=== PATIENT | female | born 1975 | race Caucasian/White ===

== ENCOUNTER 2017-04-08 12:13 | Emergency (ER) | payer OTHER ==
[~2017-04-08] VITALS: Ht 167.6 cm; Wt 120.0 kg
[~2017-04-08 12:13] MED LIST: ACEASPCAF PO; ACET500 PO; ALBU90OI INH; ALBU90OI6; ALBU90OI61 INH; Acetaminophen325 M1 PO; Amitriptyline H10 MG PO; Amoxicillin875 MG PO; Aspirin EC81 MG PO; Ativan1 MG PO; BUPR150ER PO; CEPH500 PO; CIPR500 PO; CRUTCH4 USE; CYCL10 PO; Crutch1 EACH MISC; DOCU100 PO; DOXY100 PO; EQUATE MIGRAINE; Excedrin Extra1 EACH PO; FLUO10 PO; FLUT220OIA INH; Flonase 0.05% N16 GM; GABA100 PO; HYDACE5; HYDACE5 PO; IBUP200 PO; IBUP400 PO; IBUP600 PO; IBUP800 PO; LIDO5TP TOP; LORA1 PO; MULVITMINE PO; NAPR220 PO; NAPR500 PO; Naprosyn500 MG PO; Norco 5-325 Ta1 EACH PO; OXYACE5T PO; PENVK500 PO; PERM5TC TOP; PRED20 PO; PROM25 PO; PSEU120ER PO; Prednisone20 MG PO; RANI150 PO; RXOXYACE PO; RXPROM25 PO; RXTRAM50 PO; SPACE CHAMBER1 EACH MC; SULI150 PO; TRAACE PO; TRAM50 PO; TRAZ50 PO; ULTRAM PO; Ultram50 MG PO; Verotin-Gr Cap1 EACH PO; Vistaril50 MG PO; Vitamin D2000 UNIT PO; Zithromax250 MG PO; Zofran4 MG PO; [UNRECOGNIZED DRUG - OTHER]; [UNRECOGNIZED DRUG - OTHER] PO
[2017-04-08 12:51] LABS: BASOPHILS ABSOLUTE AUTO 0.09 K/mm3 (0.00-0.23); BASOPHILS PERCENT AUTO 1 % (0-2); EOSINOPHILS ABSOLUTE AUTO 0.58 K/mm3 (0.00-0.68); EOSINOPHILS PERCENT AUTO 6 % (0-6); Hematocrit 41.1 % (33.0-51.0); Hemoglobin 13.2 g/dL (11.5-16.0); IMMATURE GRAN ABSOLUTE AUTO 0.02 K/mm3 (0.00-0.10); IMMATURE GRAN PERCENT AUTO 0 % (0-1); LYMPHOCYTES ABSOLUTE AUTO 3.76 K/mm3 (0.84-5.20); LYMPHOCYTES PERCENT AUTO 35 % (21-46); MONOCYTES PERCENT AUTO 5 % (4-13); Mean Corpuscular HGB 28.8 pg (26.0-34.0); Mean Corpuscular HGB Conc 32.1 g/dL (31.5-36.5); Mean Corpuscular Volume 90 fL (80-100); Mean Platelet Volume 9.1 fL (9.1-12.4); NEUTROPHILS ABSOLUTE AUTO 5.69 K/mm3 (1.96-9.15); NEUTROPHILS PERCENT AUTO 54 % (41-73); Platelet Count 349 K/mm3 (150-400); RDW Coefficient Variation 12.1 % (11.7-14.2); RDW Standard Deviation 39.9 fL (35.1-46.3); Red Blood Cell Count 4.58 M/mm3 (3.80-5.20); White Blood Cell Count 10.64 K/mm3 (4.00-11.30)
[2017-04-08 13:08] LABS: Alanine Aminotransfer (ALT/SGP 21 U/L (12-78); Albumin, Blood 3.4 g/dL (3.4-5.0); Albumin/Globulin Ratio 0.7 (0.8-1.8); Alk Phos 97 U/L (50-136); Anion Gap 8 mmol/L (6-16); Aspartate Aminotrans (AST/SGOT 16 U/L (12-37); Bilirubin, Total 0.3 mg/dL (0.1-1.0); Blood Urea Nitrogen 18 mg/dL (8-24); Bun/Creatinine Ratio 18.5 (12.0-20.0); CO2, Blood 27 mmol/L (21-32); Chloride, Blood 105 mmol/L (98-108); Creatinine, Blood 0.97 mg/dL (0.40-1.00); Globulin, Blood 4.7 g/dL (2.2-4.0); Glomerular Filtration Rate >60 (60-); Glucose, Blood 83 mg/dL (70-99); Potassium, Blood 3.8 mmol/L (3.5-5.5); Sodium, Blood 140 mmol/L (136-145); Total Protein, Blood 8.1 g/dL (6.4-8.2)
[2017-04-08] MEDS ORDERED: ACET250 PO (15:26)
[2017-04-08] MEDS ORDERED: Ultram50 MG PO (15:45)
== END 2017-04-08 15:58 | disposition home or self-care (01) ==
LOC: ER 12:13
PROVIDERS: Emergency Medicine
DX: G93.2 Benign intracranial hypertension (principal); J45.909 Unspecified asthma, uncomplicated; Z90.710 Acquired absence of both cervix and uterus; Z90.49 Acquired absence of other specified parts of digestive tract
CPT/HCPCS: 36415; 70450; 80053; 85025; 96374; 99284; J1940

== ENCOUNTER 2017-09-03 10:42 | Emergency (ER) | payer OTHER ==
[~2017-09-03] VITALS: Ht 167.6 cm; Wt 108.9 kg
[~2017-09-03 10:42] MED LIST changes: +ACET250 PO
[2017-09-03] MEDS ORDERED: MECL12.5 PO (11:27)
[2017-09-03] MEDS ORDERED: Esgic Tablet1 EACH PO (11:27)
== END 2017-09-03 11:31 | disposition home or self-care (01) ==
LOC: ER 10:42
DX: R51 Headache (principal); J45.909 Unspecified asthma, uncomplicated; Z88.8 Allergy status to other drugs, medicaments and biological substances; Z91.012 Allergy to eggs; Z91.018 Allergy to other foods; Z79.899 Other long term (current) drug therapy
CPT/HCPCS: 96372; 99283; J1100; J1200; J1885

== ENCOUNTER 2017-09-20 09:49 | Emergency (ER) | payer OTHER ==
[~2017-09-20] VITALS: Ht 167.6 cm; Wt 108.9 kg
[~2017-09-20 09:49] MED LIST changes: +Esgic Tablet1 EACH PO; +MECL12.5 PO
[2017-09-20 10:19] LABS: Source, Urine Clean Catch
[2017-09-20 10:35] LABS: Bilirubin, Urine Neg (Neg); Blood, Urine 1+ (Neg); Glucose Qualitative, Urine Neg (Neg); Ketones, Urine Neg (Neg); Leukocyte Esterase, Urine 3+ (Neg); Nitrite, Urine Neg (Neg); Protein, Urine Neg (Neg); Specific Gravity, Urine 1.015 (1.003-1.022); Urobilinogen, Urine NORM (Normal)
[2017-09-20 10:41] LABS: Appearance, Urine Clear (Clear); Color, Urine Yellow (P-Yellow)
[2017-09-20 10:43] LABS: Bacteria Few /hpf; Squamous Epithelial Cells Mod /hpf (Few)
[2017-09-20 10:53] LABS: Bun/Creatinine Ratio 12.5 (12.0-20.0); Calcium, Blood 9.1 mg/dL (8.5-10.1); Creatinine, Blood 1.12 mg/dL (0.40-1.00); Potassium, Blood 4.1 mmol/L (3.5-5.5)
== END 2017-09-20 12:03 | disposition home or self-care (01) ==
LOC: ER 09:49
PROVIDERS: Emergency Medicine
DX: E86.0 Dehydration (principal); Z88.8 Allergy status to other drugs, medicaments and biological substances; Z91.012 Allergy to eggs; Z91.018 Allergy to other foods; Z79.899 Other long term (current) drug therapy; Z87.891 Personal history of nicotine dependence
CPT/HCPCS: 36415; 80048; 81001; 87086; 96360; 99284-25; J2405; J7030

== ENCOUNTER 2018-03-29 08:13 | Emergency (ER) | payer OTHER ==
[~2018-03-29] VITALS: Ht 167.6 cm; Wt 122.5 kg
[2018-03-29] MEDS ORDERED: Flonase 0.05% N16 GM (09:32)
[2018-03-29] MEDS ORDERED: Cheratussin AC118 ML PO (09:32)
[2018-03-29] MEDS ORDERED: Sudogest30 MG PO (09:32)
[2018-03-29] MEDS ORDERED: BENZ100A PO (09:32)
== END 2018-03-29 10:10 | disposition home or self-care (01) ==
LOC: ER 08:13
DX: J32.9 Chronic sinusitis, unspecified (principal); J45.909 Unspecified asthma, uncomplicated; Z88.8 Allergy status to other drugs, medicaments and biological substances; Z79.899 Other long term (current) drug therapy
CPT/HCPCS: 96374; 99282-25; J1100

== ENCOUNTER 2018-04-12 17:59 | Emergency (ER) | payer OTHER ==
[~2018-04-12] VITALS: Ht 167.6 cm; Wt 122.5 kg
[~2018-04-12 17:59] MED LIST changes: +BENZ100A PO; +Cheratussin AC118 ML PO; +Sudogest30 MG PO
[2018-04-12] MEDS ORDERED: Sudogest60 MG PO (20:00)
[2018-04-12] MEDS ORDERED: Cheratussin AC118 ML PO (20:00)
[2018-04-12] MEDS ORDERED: BENZ100A PO (20:00)
== END 2018-04-12 20:09 | disposition home or self-care (01) ==
LOC: ER 17:59
DX: J06.9 Acute upper respiratory infection, unspecified (principal); Z88.8 Allergy status to other drugs, medicaments and biological substances; Z91.012 Allergy to eggs; Z91.018 Allergy to other foods; Z79.899 Other long term (current) drug therapy; Z87.891 Personal history of nicotine dependence
CPT/HCPCS: 71046; 99283-25; J1100

== ENCOUNTER 2018-06-04 14:16 | Emergency (ER) | payer OTHER ==
[~2018-06-04] VITALS: Ht 167.6 cm; Wt 122.5 kg
[~2018-06-04 14:16] MED LIST changes: +Sudogest60 MG PO
[2018-06-04 15:20] LABS: Influenza A Negative (NEGATIVE); Influenza B Negative (NEGATIVE)
[2018-06-04] MEDS ORDERED: Zithromax250 MG PO (16:02)
[2018-06-04] MEDS ORDERED: Cheratussin AC118 ML PO (16:02)
== END 2018-06-04 16:20 | disposition home or self-care (01) ==
LOC: ER 14:16
PROVIDERS: Physician Assistant
DX: R05 Cough (principal); J45.909 Unspecified asthma, uncomplicated; Z88.8 Allergy status to other drugs, medicaments and biological substances; Z88.6 Allergy status to analgesic agent; Z91.012 Allergy to eggs; Z79.899 Other long term (current) drug therapy
CPT/HCPCS: 71046; 87804; 99283-25; J1100

== ENCOUNTER 2018-10-09 06:37 | Day surgery (SDC) | payer OTHER ==
[~2018-10-09] VITALS: Ht 167.6 cm; Wt 131.7 kg
[~2018-10-09 06:37] MED LIST changes: +Flovent 220 Ora12 GM INH; +GABA300 PO; +HYDHCL25 PO; +Lyrica150 MG PO; +Naltrexone HCl50 MG PO; +PREPLUS CA-FE1 EACH PO; +Prilosec Otc20 MG PO; +Prozac40 MG PO; +VOL-PLUS TABLE1 EAC1 PO; +Xalatan2.5 ML BOTHEYES
--- NOTE | 2018-10-09 07:15 | NUR ---
10/09/18 0715 Merari Dawn 1 IV ATTEMPT RIGHT HAND BY [email or web address], 1 IV ATTEMPT RIGHT FA BY [email or web address]. 1 IV ATTEMPT RIGHT HAND BY ORSC.AMALIA. PT TOW.
== END 2018-10-09 08:25 | disposition home or self-care (01) ==
LOC: ORSCSDS 06:37
PROVIDERS: Orthopaedic Surgery
PROC: 01N50ZZ Release Median Nerve, Open Approach (ICD-10-PCS; principal; 2018-10-09 07:30)
DX: G56.02 Carpal tunnel syndrome, left upper limb (principal); M79.7 Fibromyalgia; J45.909 Unspecified asthma, uncomplicated; Z79.899 Other long term (current) drug therapy; Z87.891 Personal history of nicotine dependence; E66.9 Obesity, unspecified; Z68.42 Body mass index [BMI] 45.0-49.9, adult
CPT/HCPCS: J2250; J7120

== ENCOUNTER 2019-01-06 11:35 | Emergency (ER) | payer OTHER ==
[~2019-01-06] VITALS: Ht 167.6 cm; Wt 136.1 kg
[2019-01-06 13:24] LABS: Source, Urine Clean Catch
[2019-01-06 13:26] LABS: Alanine Aminotransfer (ALT/SGP 25 U/L (12-78); Albumin, Blood 3.7 g/dL (3.4-5.0); Albumin/Globulin Ratio 0.9 (0.8-1.8); Alk Phos 95 U/L (50-136); Anion Gap 5 mmol/L (6-16); Aspartate Aminotrans (AST/SGOT 18 U/L (12-37); Bilirubin, Total 0.5 mg/dL (0.1-1.0); Blood Urea Nitrogen 17 mg/dL (8-24); Bun/Creatinine Ratio 17.7 (12.0-20.0); CO2, Blood 25 mmol/L (21-32); Chloride, Blood 106 mmol/L (98-108); Creatinine, Blood 0.96 mg/dL (0.40-1.00); Globulin, Blood 4.3 g/dL (2.2-4.0); Glomerular Filtration Rate >60 (60-); Glucose, Blood 92 mg/dL (70-99); Potassium, Blood 4.2 mmol/L (3.5-5.5); Sodium, Blood 136 mmol/L (136-145)
[2019-01-06 13:27] LABS: BASOPHILS ABSOLUTE AUTO 0.05 K/mm3 (0.00-0.23); BASOPHILS PERCENT AUTO 1 % (0-2); EOSINOPHILS ABSOLUTE AUTO 0.21 K/mm3 (0.00-0.68); EOSINOPHILS PERCENT AUTO 2 % (0-6); Hematocrit 45.4 % (33.0-51.0); Hemoglobin 14.7 g/dL (11.5-16.0); IMMATURE GRAN ABSOLUTE AUTO 0.05 K/mm3 (0.00-0.10); IMMATURE GRAN PERCENT AUTO 1 % (0-1); LYMPHOCYTES ABSOLUTE AUTO 2.27 K/mm3 (0.84-5.20); LYMPHOCYTES PERCENT AUTO 21 % (21-46); MONOCYTES ABSOLUTE AUTO 0.44 K/mm3 (0.16-1.47); MONOCYTES PERCENT AUTO 4 % (4-13); Mean Corpuscular HGB 28.7 pg (26.0-34.0); Mean Corpuscular HGB Conc 32.4 g/dL (31.5-36.5); Mean Corpuscular Volume 89 fL (80-100); NEUTROPHILS ABSOLUTE AUTO 7.85 K/mm3 (1.96-9.15); NEUTROPHILS PERCENT AUTO 72 % (41-73); RDW Coefficient Variation 12.7 % (11.7-14.2); RDW Standard Deviation 41.4 fL (35.1-46.3); Red Blood Cell Count 5.12 M/mm3 (3.80-5.20); White Blood Cell Count 10.87 K/mm3 (4.00-11.30)
[2019-01-06 13:29] LABS: Mean Platelet Volume 9.8 fL (9.1-12.4); Platelet Count 345 K/mm3 (150-400)
[2019-01-06 14:07] LABS: Bilirubin, Urine Neg (Neg); Blood, Urine 1+ (Neg); Color, Urine Yellow (P-Yellow); Glucose Qualitative, Urine Neg (Neg); Ketones, Urine Neg (Neg); Leukocyte Esterase, Urine 2+ (Neg); Nitrite, Urine Neg (Neg); Protein, Urine 1+ (Neg); Specific Gravity, Urine 1.015 (1.003-1.022); Urobilinogen, Urine NORM (Normal)
[2019-01-06 14:19] LABS: Appearance, Urine Hazy (Clear)
[2019-01-06 14:23] LABS: Bacteria Mod /hpf; Squamous Epithelial Cells Mod /hpf (Few)
[2019-01-06] MEDS ORDERED: CEPH500 PO (14:48)
[2019-01-06] MEDS ORDERED: KETO10 PO (14:48)
[2019-01-06] MEDS ORDERED: Norco 5-325 Ta1 EACH PO (14:48)
== END 2019-01-06 15:19 | disposition home or self-care (01) ==
LOC: ER 11:35
PROVIDERS: Physician Assistant
DX: G43.909 Migraine, unspecified, not intractable, without status migrainosus (principal); N39.0 Urinary tract infection, site not specified; Z88.8 Allergy status to other drugs, medicaments and biological substances; Z91.012 Allergy to eggs; Z79.899 Other long term (current) drug therapy; Z87.891 Personal history of nicotine dependence
CPT/HCPCS: 36415; 70450; 72125; 80053; 81001; 85025; 87086; 96372; 99284-25; J1885

== ENCOUNTER 2019-03-28 20:19 | Emergency (ER) | payer OTHER ==
[~2019-03-28] VITALS: Ht 167.6 cm; Wt 136.1 kg
[~2019-03-28 20:19] MED LIST changes: +KETO10 PO
[2019-03-28] MEDS ORDERED: KETO10 PO (21:26)
== END 2019-03-28 21:40 | disposition home or self-care (01) ==
LOC: ER 20:19
DX: S89.82XA Other specified injuries of left lower leg, initial encounter (principal); Z79.899 Other long term (current) drug therapy; W18.30XA Fall on same level, unspecified, initial encounter
CPT/HCPCS: 73564; 99283-25; A9270-GY

== ENCOUNTER 2019-04-08 12:05 | Emergency (ER) | payer OTHER ==
[~2019-04-08] VITALS: Ht 167.6 cm; Wt 136.1 kg
[2019-04-08] MEDS ORDERED: Norco 5-325 Ta1 EACH PO (15:26)
== END 2019-04-08 15:44 | disposition home or self-care (01) ==
LOC: ER 12:05
DX: S83.92XA Sprain of unspecified site of left knee, initial encounter (principal); W18.30XA Fall on same level, unspecified, initial encounter; Z88.8 Allergy status to other drugs, medicaments and biological substances; Z91.018 Allergy to other foods; Z79.899 Other long term (current) drug therapy; Z91.012 Allergy to eggs; J45.909 Unspecified asthma, uncomplicated; Z87.891 Personal history of nicotine dependence
CPT/HCPCS: 99283

== ENCOUNTER → 2020-01-07 | Outpatient (CLI) | payer OTHER | LOC: PLD 07:40 → LAB SHORT 07:40 | DX: A63.0 Anogenital (venereal) warts (principal) | CPT/HCPCS: 88305 ==

== ENCOUNTER 2021-07-31 13:26 | Emergency (ER) | payer OTHER ==
[~2021-07-31] VITALS: Ht 167.6 cm; Wt 158.8 kg
[2021-07-31] MEDS ORDERED: NAPR500 PO (15:17)
== END 2021-07-31 15:23 | disposition home or self-care (01) ==
LOC: ER 13:26
DX: S83.92XA Sprain of unspecified site of left knee, initial encounter (principal); W18.30XA Fall on same level, unspecified, initial encounter; J45.909 Unspecified asthma, uncomplicated; Z91.012 Allergy to eggs; Z88.8 Allergy status to other drugs, medicaments and biological substances; Z91.018 Allergy to other foods; Z79.899 Other long term (current) drug therapy; Z87.891 Personal history of nicotine dependence
CPT/HCPCS: 73564; 96372; 99283-25; J1885

== ENCOUNTER 2021-09-06 10:45 | Emergency (ER) | payer OTHER ==
[~2021-09-06] VITALS: Ht 167.6 cm; Wt 158.8 kg
[2021-09-06] MEDS ORDERED: Norco 5-325 Ta1 EACH PO (13:20)
== END 2021-09-06 13:06 | disposition home or self-care (01) ==
LOC: ER 10:45
DX: K08.89 Other specified disorders of teeth and supporting structures (principal); Z88.8 Allergy status to other drugs, medicaments and biological substances; Z91.018 Allergy to other foods; Z79.899 Other long term (current) drug therapy; Z87.891 Personal history of nicotine dependence
CPT/HCPCS: A9270

== ENCOUNTER 2022-07-23 06:37 | Emergency (ER) | payer OTHER ==
[~2022-07-23] VITALS: Ht 162.6 cm; Wt 154.2 kg
[~2022-07-23 06:37] MED LIST changes: +Voltaren100 GM TOP
[2022-07-23 07:19] LABS: BASOPHILS ABSOLUTE AUTO 0.09 K/mm3 (0.00-0.23); BASOPHILS PERCENT AUTO 1 % (0-2); EOSINOPHILS ABSOLUTE AUTO 1.21 K/mm3 (0.00-0.68); EOSINOPHILS PERCENT AUTO 7 % (0-6); Hematocrit 41.8 % (33.0-51.0); Hemoglobin 13.2 g/dL (11.5-16.0); IMMATURE GRAN ABSOLUTE AUTO 0.06 K/mm3 (0.00-0.10); IMMATURE GRAN PERCENT AUTO 0 % (0-1); LYMPHOCYTES ABSOLUTE AUTO 2.56 K/mm3 (0.84-5.20); LYMPHOCYTES PERCENT AUTO 15 % (21-46); MONOCYTES PERCENT AUTO 4 % (4-13); Mean Corpuscular HGB 28.6 pg (26.0-34.0); Mean Corpuscular HGB Conc 31.6 g/dL (31.5-36.5); Mean Corpuscular Volume 91 fL (80-100); NEUTROPHILS ABSOLUTE AUTO 12.76 K/mm3 (1.96-9.15); NEUTROPHILS PERCENT AUTO 74 % (41-73); Platelet Count 435 K/mm3 (150-400); RDW Standard Deviation 46.2 fL (35.1-46.3); Red Blood Cell Count 4.61 M/mm3 (3.80-5.20); White Blood Cell Count 17.28 K/mm3 (4.00-11.30)
[2022-07-23 07:29] LABS: Albumin, Blood 3.1 g/dL (3.4-5.0); Albumin/Globulin Ratio 0.7 (0.8-1.8); Bilirubin, Total 0.6 mg/dL (0.1-1.0); Calcium, Blood 10.4 mg/dL (8.5-10.1); Creatinine, Blood 1.23 mg/dL (0.40-1.00); Globulin, Blood 4.5 g/dL (2.2-4.0); Total Protein, Blood 7.6 g/dL (6.4-8.2)
[2022-07-23 07:43] LABS: Source, Urine Voided
[2022-07-23 07:56] LABS: Appearance, Urine Bloody (Clear); Bilirubin, Urine Neg (Neg); Blood, Urine 5+ (Neg); Color, Urine Red (P-Yellow); Glucose Qualitative, Urine Neg (Neg); Ketones, Urine 2+ (Neg); Leukocyte Esterase, Urine Neg (Neg); Nitrite, Urine Neg (Neg); Protein, Urine 3+ (Neg); Specific Gravity, Urine 1.015 (1.003-1.022); Urobilinogen, Urine 1+ (Normal)
[2022-07-23 08:03] LABS: Red Blood Cells, Urine TNTC /hpf (0-2)
[2022-07-23 08:05] LABS: Bacteria Mod /hpf; Squamous Epithelial Cells Few /hpf (Few)
[2022-07-23 08:10] LABS: White Blood Cells, Urine 0-2 /hpf (0-5)
[2022-07-23 08:11] LABS: Calcium Oxalate Crystals Rare /hpf
[2022-07-23 08:12] LABS: Transitional Epithelial Cells Rare /hpf (0-Rare)
[2022-07-23 12:00] VITALS: BP 150/102
== END 2022-07-23 13:12 | disposition short-term general hospital (02) ==
LOC: ER 06:37
PROVIDERS: Emergency Medicine
DX: N13.2 Hydronephrosis with renal and ureteral calculous obstruction (principal); Z88.8 Allergy status to other drugs, medicaments and biological substances; Z91.018 Allergy to other foods; Z91.012 Allergy to eggs; Z87.891 Personal history of nicotine dependence
CPT/HCPCS: 74177; 80053; 81001; 83690; 85025; 87086; 93005; 93010; 96361; 96374-59; 96375; 96376; 99285-25; J0696; J1170; J1885; J7030; Q9967

== ENCOUNTER 2022-08-01 11:45 | Emergency (ER) | payer OTHER ==
[~2022-08-01] VITALS: Ht 167.6 cm; Wt 127.0 kg
[2022-08-01 12:53] LABS: Source, Urine Clean Catch
[2022-08-01 12:56] LABS: Appearance, Urine Cloudy (Clear); Bilirubin, Urine Neg (Neg); Blood, Urine 5+ (Neg); Color, Urine Amber (P-Yellow); Glucose Qualitative, Urine Neg (Neg); Ketones, Urine Neg (Neg); Leukocyte Esterase, Urine 2+ (Neg); Nitrite, Urine Neg (Neg); Protein, Urine 3+ (Neg); Urobilinogen, Urine NORM (Normal)
[2022-08-01 12:57] LABS: BASOPHILS ABSOLUTE AUTO 0.06 K/mm3 (0.00-0.23); BASOPHILS PERCENT AUTO 1 % (0-2); EOSINOPHILS ABSOLUTE AUTO 0.74 K/mm3 (0.00-0.68); EOSINOPHILS PERCENT AUTO 6 % (0-6); Hemoglobin 13.5 g/dL (11.5-16.0); IMMATURE GRAN ABSOLUTE AUTO 0.05 K/mm3 (0.00-0.10); IMMATURE GRAN PERCENT AUTO 0 % (0-1); LYMPHOCYTES ABSOLUTE AUTO 2.03 K/mm3 (0.84-5.20); LYMPHOCYTES PERCENT AUTO 17 % (21-46); MONOCYTES ABSOLUTE AUTO 0.43 K/mm3 (0.16-1.47); MONOCYTES PERCENT AUTO 4 % (4-13); Mean Corpuscular HGB 28.4 pg (26.0-34.0); Mean Corpuscular HGB Conc 31.4 g/dL (31.5-36.5); Mean Corpuscular Volume 90 fL (80-100); Mean Platelet Volume 9.1 fL (9.1-12.4); NEUTROPHILS ABSOLUTE AUTO 8.56 K/mm3 (1.96-9.15); NEUTROPHILS PERCENT AUTO 72 % (41-73); Platelet Count 462 K/mm3 (150-400); RDW Coefficient Variation 13.8 % (11.7-14.2); RDW Standard Deviation 46.1 fL (35.1-46.3); Red Blood Cell Count 4.76 M/mm3 (3.80-5.20); White Blood Cell Count 11.87 K/mm3 (4.00-11.30)
[2022-08-01 13:05] LABS: Bacteria Few /hpf; Red Blood Cells, Urine TNTC /hpf (0-2); Squamous Epithelial Cells Rare /hpf (Few)
[2022-08-01 13:14] LABS: Albumin, Blood 3.4 g/dL (3.4-5.0); Albumin/Globulin Ratio 0.8 (0.8-1.8); Bilirubin, Total 0.6 mg/dL (0.1-1.0); Bun/Creatinine Ratio 12.4 (12.0-20.0); Calcium, Blood 9.7 mg/dL (8.5-10.1); Creatinine, Blood 1.21 mg/dL (0.40-1.00); Globulin, Blood 4.4 g/dL (2.2-4.0); Potassium, Blood 4.2 mmol/L (3.5-5.5); Total Protein, Blood 7.8 g/dL (6.4-8.2)
[2022-08-01 16:00] VITALS: BP 160/90
== END 2022-08-01 16:23 | disposition home or self-care (01) ==
LOC: ER 11:45
PROVIDERS: Student in an Organized Health Care Education/Training Program
DX: R31.9 Hematuria, unspecified (principal); R10.9 Unspecified abdominal pain; J45.909 Unspecified asthma, uncomplicated; Z88.8 Allergy status to other drugs, medicaments and biological substances; Z88.6 Allergy status to analgesic agent; Z87.442 Personal history of urinary calculi; Z91.012 Allergy to eggs; Z91.018 Allergy to other foods; Z79.899 Other long term (current) drug therapy; Z87.891 Personal history of nicotine dependence
CPT/HCPCS: 80053; 81001; 85025; A9270; J3010

== ENCOUNTER 2022-10-05 11:28 | Inpatient (IN) | payer OTHER ==
[2022-10-05 12:21] LABS: BASOPHILS ABSOLUTE AUTO 0.08 K/mm3 (0.00-0.23); BASOPHILS PERCENT AUTO 0 % (0-2); EOSINOPHILS ABSOLUTE AUTO 1.71 K/mm3 (0.00-0.68); EOSINOPHILS PERCENT AUTO 9 % (0-6); Hematocrit 38.6 % (33.0-51.0); Hemoglobin 12.5 g/dL (11.5-16.0); IMMATURE GRAN ABSOLUTE AUTO 0.14 K/mm3 (0.00-0.10); IMMATURE GRAN PERCENT AUTO 1 % (0-1); LYMPHOCYTES ABSOLUTE AUTO 1.12 K/mm3 (0.84-5.20); LYMPHOCYTES PERCENT AUTO 6 % (21-46); MONOCYTES ABSOLUTE AUTO 0.43 K/mm3 (0.16-1.47); MONOCYTES PERCENT AUTO 2 % (4-13); Mean Corpuscular HGB 28.7 pg (26.0-34.0); Mean Corpuscular HGB Conc 32.4 g/dL (31.5-36.5); Mean Corpuscular Volume 89 fL (80-100); Mean Platelet Volume 8.9 fL (9.1-12.4); NEUTROPHILS ABSOLUTE AUTO 16.41 K/mm3 (1.96-9.15); NEUTROPHILS PERCENT AUTO 83 % (41-73); Platelet Count 386 K/mm3 (150-400); RDW Standard Deviation 45.1 fL (35.1-46.3); Red Blood Cell Count 4.35 M/mm3 (3.80-5.20); White Blood Cell Count 19.89 K/mm3 (4.00-11.30)
[2022-10-05 12:47] LABS: Albumin, Blood 3.2 g/dL (3.4-5.0); Albumin/Globulin Ratio 0.7 (0.8-1.8); Bilirubin, Total 0.6 mg/dL (0.1-1.0); Calcium, Blood 9.3 mg/dL (8.5-10.1); Creatinine, Blood 0.94 mg/dL (0.40-1.00); Globulin, Blood 4.3 g/dL (2.2-4.0); Potassium, Blood 4.6 mmol/L (3.5-5.5); Total Protein, Blood 7.5 g/dL (6.4-8.2)
[2022-10-05] MEDS ORDERED: TAMSULOSIN HCL0.4 M1 PO (13:12)
[2022-10-05 18:04] LABS: Source, Urine Clean Catch
[2022-10-05 18:30] LABS: Appearance, Urine Clear (Clear); Bilirubin, Urine Neg (Neg); Blood, Urine Neg (Neg); Color, Urine Yellow (P-Yellow); Glucose Qualitative, Urine Neg (Neg); Ketones, Urine Neg (Neg); Leukocyte Esterase, Urine Neg (Neg); Nitrite, Urine Neg (Neg); Protein, Urine Neg (Neg); Urobilinogen, Urine NORM (Normal)
[2022-10-05 20:14] LABS: U Opiates Screen DETECTED
[2022-10-05 20:15] LABS: U Amphetamine Screen Not Detected; U Barbituate Screen Not Detected; U Benzodiazapine Screen Not Detected; U Buprenorphine Screen Not Detected; U Cannabinoids Screen Not Detected; U Cocaine Screen Not Detected; U Methadone Screen Not Detected; U Methamphetamine Screen Not Detected; U Oxycodone Screen Not Detected; U Phencyclidine Screen Not Detected; U Propoxyphene Screen Not Detected
[2022-10-05] MEDS ORDERED: AMITRIPTYLINE100 M6 PO (21:41)
[2022-10-05] MEDS ORDERED: ATORVASTATIN CA20 MG PO (21:41)
[2022-10-05 23:44] VITALS: BP 141/95
--- NOTE | 2022-10-06 01:43 | NUR ---
CALLED FOR REPORT FROM STOCK HANDLER AT 2208. REPORT GOTTEN FROM NORIS SINCLAIR AT 2225. PT BROUGHT TO ROOM 361 BY NET UI DEVELOPER. PT L HAND IV WAS INFILTRATED UPON ARRIVAL. IV REPLACED AT 2320 BY DEZ SEAMAN RN. PT WAS HAVING SOME PAIN, GIVEN OXYCODONE ORALLY PER EMAR. PT IS PLEASANT AND COOPERATIVE WITH CARE.
[2022-10-06 02:28] VITALS: BP 149/91
--- NOTE | 2022-10-06 04:52 | NUR ---
SHIFT SUMMARY PT PLEASANT AND COOPERATIVE. NO ACUTE CHANGES TO PT CONDITION AT THIS TIME. PT HAS COMPLAINED ABOUT SOME FLANK AND ABD PAIN THROUGHOUT THE NIGHT AND HAS BEEN MEDICATED PER EMAR. PT HAS CALL LIGHT WITHIN REACH AND HAS BEEN INSTRUCTED ON ITS USE.
[2022-10-06 06:58] LABS: BASOPHILS ABSOLUTE AUTO 0.01 K/mm3 (0.00-0.23); BASOPHILS PERCENT AUTO 0 % (0-2); EOSINOPHILS PERCENT AUTO 0 % (0-6); Hematocrit 35.8 % (33.0-51.0); Hemoglobin 11.3 g/dL (11.5-16.0); IMMATURE GRAN ABSOLUTE AUTO 0.08 K/mm3 (0.00-0.10); IMMATURE GRAN PERCENT AUTO 1 % (0-1); LYMPHOCYTES PERCENT AUTO 7 % (21-46); MONOCYTES ABSOLUTE AUTO 0.57 K/mm3 (0.16-1.47); MONOCYTES PERCENT AUTO 3 % (4-13); Mean Corpuscular HGB 28.6 pg (26.0-34.0); Mean Corpuscular HGB Conc 31.6 g/dL (31.5-36.5); Mean Corpuscular Volume 91 fL (80-100); Mean Platelet Volume 9.4 fL (9.1-12.4); NEUTROPHILS ABSOLUTE AUTO 15.26 K/mm3 (1.96-9.15); NEUTROPHILS PERCENT AUTO 89 % (41-73); Platelet Count 392 K/mm3 (150-400); RDW Coefficient Variation 14.1 % (11.7-14.2); RDW Standard Deviation 46.6 fL (35.1-46.3); Red Blood Cell Count 3.95 M/mm3 (3.80-5.20); White Blood Cell Count 17.12 K/mm3 (4.00-11.30)
[2022-10-06 07:06] LABS: Albumin, Blood 2.8 g/dL (3.4-5.0); Albumin/Globulin Ratio 0.7 (0.8-1.8); Bilirubin, Total 0.3 mg/dL (0.1-1.0); Bun/Creatinine Ratio 20.4 (12.0-20.0); Calcium, Blood 8.3 mg/dL (8.5-10.1); Creatinine, Blood 1.03 mg/dL (0.40-1.00); Globulin, Blood 4.2 g/dL (2.2-4.0); Magnesium, Blood 2.1 mg/dL (1.6-2.4); Potassium, Blood 5.4 mmol/L (3.5-5.5)
[2022-10-06 07:42] VITALS: BP 130/82
[2022-10-06 14:43] VITALS: BP 154/80
--- NOTE | 2022-10-06 18:20 | NUR ---
THE PATIENT IS INDEPENDENT IN HER ROOM, AND HAS SLEPT A GOOD PART OF THE AFTERNOON, THE PATIENT'S IV WENT BAD AND WAS REPLACED. THE PATIENT IS COMPLAINING ABOUT THE DIET HER DOCTORS HAVE PUT HER ON AND HAS COMPLAINED TO THEM ABOUT IT. THE PATIENT HAS BEEN EDUCATED ON THE DANGERS OF FIRES AND IGNITION SOURCES. THE PATIENT IS ASLEEP AT THIS TIME, WILL CONTINUE TO MONITOR HER.
[2022-10-06 21:08] VITALS: BP 142/96
[2022-10-07] VITALS (7 sets, daily range): BP systolic 137–191; BP diastolic 76–99
--- NOTE | 2022-10-07 05:11 | NUR ---
SHIFT SUMMARY PT SLEEPING OFF AND ON MUCH OF THE EVENING AND CAR SEAT UPHOLSTERER. PT HAVING PAIN AND WAS MEDICATED EACH TIME PER EMAR WITH PAIN MEDICATIONS. PT AWOKE THIS AM WITH ARM PAIN AND "CHEST FLUTTERING". PT VITAL SIGNS HAVE BEEN CHECKED SEVERAL TIMES SINCE THIS OCCURENCE AND THEY ARE WITHIN NORMAL LIMITS. PT GIVEN ANXIETY MEDICATION AND PAIN MEDICATION THIS AM. PT LYING IN BED QUIETLY WATCHING TELEVISION AT THIS TIME. CALL LIGHT IS WITHIN HER REACH AND SHE USES IT APPROPRITELY.
[2022-10-07 05:35] LABS: BASOPHILS ABSOLUTE AUTO 0.04 K/mm3 (0.00-0.23); BASOPHILS PERCENT AUTO 0 % (0-2); EOSINOPHILS ABSOLUTE AUTO 0.07 K/mm3 (0.00-0.68); EOSINOPHILS PERCENT AUTO 0 % (0-6); Hematocrit 37.8 % (33.0-51.0); Hemoglobin 11.8 g/dL (11.5-16.0); IMMATURE GRAN ABSOLUTE AUTO 0.13 K/mm3 (0.00-0.10); IMMATURE GRAN PERCENT AUTO 1 % (0-1); LYMPHOCYTES ABSOLUTE AUTO 2.89 K/mm3 (0.84-5.20); LYMPHOCYTES PERCENT AUTO 17 % (21-46); MONOCYTES ABSOLUTE AUTO 0.95 K/mm3 (0.16-1.47); MONOCYTES PERCENT AUTO 6 % (4-13); Mean Corpuscular HGB 28.4 pg (26.0-34.0); Mean Corpuscular HGB Conc 31.2 g/dL (31.5-36.5); Mean Corpuscular Volume 91 fL (80-100); Mean Platelet Volume 9.6 fL (9.1-12.4); NEUTROPHILS ABSOLUTE AUTO 13.21 K/mm3 (1.96-9.15); NEUTROPHILS PERCENT AUTO 76 % (41-73); Platelet Count 396 K/mm3 (150-400); RDW Coefficient Variation 14.6 % (11.7-14.2); RDW Standard Deviation 48.2 fL (35.1-46.3); Red Blood Cell Count 4.15 M/mm3 (3.80-5.20); White Blood Cell Count 17.29 K/mm3 (4.00-11.30)
[2022-10-07 05:59] LABS: Bun/Creatinine Ratio 29.4 (12.0-20.0); Calcium, Blood 8.8 mg/dL (8.5-10.1); Creatinine, Blood 0.88 mg/dL (0.40-1.00); Potassium, Blood 5.3 mmol/L (3.5-5.5)
--- NOTE | 2022-10-07 17:45 | NUR ---
THE PATIENT IS INDEPENDANT IN HER ROOM AND HAS HAD A FRIEND TAKE HER OUTSIDE THIS SHIFT. HER DOCTOR CHANGED HER DIET TO SOFT FOOD TODAY AND MADE CHANGES IN HER MEDICATIONS. THE PATIENT HAD A LARGE BM TODAY. THE PATIENT SEEMS HAPPIER TODAY AFTER HER DIET CHANGE. THE PATIENT IS IN HER ROOM EATING DINNER, RESTING. I WILL CONTINUE TO MONITOR THE PATIENT.
[2022-10-08 05:00] VITALS: BP 144/79
--- NOTE | 2022-10-08 05:27 | NUR ---
PATIENT REMAINS ALERT AND ORIENTED X4, COOPERAIVE WITH CARE. HTN WITH INCREASE L SIDE FLANK PAIN, TREATED PER MAR WITH GOOD RESULTS, VSS THERE AFTER. IND IN ROOM. IV SL. NO OTHER ISSUES TO REPORT.
[2022-10-08 05:44] LABS: BASOPHILS ABSOLUTE AUTO 0.08 K/mm3 (0.00-0.23); BASOPHILS PERCENT AUTO 1 % (0-2); EOSINOPHILS ABSOLUTE AUTO 1.05 K/mm3 (0.00-0.68); EOSINOPHILS PERCENT AUTO 8 % (0-6); Hematocrit 36.2 % (33.0-51.0); Hemoglobin 11.3 g/dL (11.5-16.0); IMMATURE GRAN ABSOLUTE AUTO 0.11 K/mm3 (0.00-0.10); IMMATURE GRAN PERCENT AUTO 1 % (0-1); LYMPHOCYTES ABSOLUTE AUTO 3.55 K/mm3 (0.84-5.20); LYMPHOCYTES PERCENT AUTO 28 % (21-46); MONOCYTES ABSOLUTE AUTO 0.69 K/mm3 (0.16-1.47); MONOCYTES PERCENT AUTO 6 % (4-13); Mean Corpuscular HGB 28.8 pg (26.0-34.0); Mean Corpuscular HGB Conc 31.2 g/dL (31.5-36.5); Mean Corpuscular Volume 92 fL (80-100); Mean Platelet Volume 9.5 fL (9.1-12.4); NEUTROPHILS ABSOLUTE AUTO 7.11 K/mm3 (1.96-9.15); NEUTROPHILS PERCENT AUTO 57 % (41-73); Platelet Count 390 K/mm3 (150-400); RDW Coefficient Variation 14.6 % (11.7-14.2); RDW Standard Deviation 49.5 fL (35.1-46.3); Red Blood Cell Count 3.93 M/mm3 (3.80-5.20); White Blood Cell Count 12.59 K/mm3 (4.00-11.30)
[2022-10-08 07:50] VITALS: BP 153/105
[2022-10-08] MEDS ORDERED: HYDHCL25 PO (10:32)
[2022-10-08] MEDS ORDERED: CIPR500 PO (10:33)
[2022-10-08] MEDS ORDERED: FAMO20 PO (10:33)
[2022-10-08] MEDS ORDERED: METR500 PO (10:34)
[2022-10-08] MEDS ORDERED: METF500 PO (10:35)
[2022-10-08] MEDS ORDERED: VISBIOME 112.51 EACH PO (10:36)
[2022-10-08] MEDS ORDERED: OXYC5 PO (10:37)
--- NOTE | 2022-10-08 12:11 | NUR ---
DISCHARGE HOME PT REMINDED THAT SHE SHOULD NOT BE DRIVING WITH OPOIDS TAKEN. SHE CALLED A FRIEND TO COME HET HER. PT LEFT VIA W/C ACCOMPANIED BY STAFF. HER BELONGINGS, LAP TOP WHERE TAKEN TO THE CAR. HARD SCRIPT GIVEN TO PT INHER LOWER BINDER. IV REMOVED WITH CANNULA INTACT. PRESSURE DRESSING APPLIED TO IV SITE. REVEIWED D/C INSTRUCTIONS. NO QUESTIONS AT THIS TIME. CONTINUE POC.
== END 2022-10-08 12:07 | disposition home or self-care (01) | DRG 392 ==
LOC: ER 11:28 → MEDS 11:29 → ENPENDDIS 10-08 10:20 → MEDS 10-08 12:07
PROVIDERS: Emergency Medicine; Internal Medicine; Nurse Practitioner Acute Care; ADMIT Internal Medicine
DX: K52.9 Noninfective gastroenteritis and colitis, unspecified (principal); R65.10 Systemic inflammatory response syndrome (SIRS) of non-infectious origin without acute organ dysfunction; E87.20 Acidosis, unspecified; F41.9 Anxiety disorder, unspecified; J45.20 Mild intermittent asthma, uncomplicated; M79.7 Fibromyalgia; D72.829 Elevated white blood cell count, unspecified; Z87.19 Personal history of other diseases of the digestive system; Z91.012 Allergy to eggs; Z87.442 Personal history of urinary calculi; Z88.8 Allergy status to other drugs, medicaments and biological substances; Z91.018 Allergy to other foods; Z79.51 Long term (current) use of inhaled steroids; Z98.890 Other specified postprocedural states; Z98.51 Tubal ligation status; Z90.710 Acquired absence of both cervix and uterus; Z90.49 Acquired absence of other specified parts of digestive tract; Z90.5 Acquired absence of kidney; Z87.891 Personal history of nicotine dependence
CPT/HCPCS: 36415; 74177; 80048; 80053; 81003; 83605; 83735; 85025; 96361; 96365-59; 96375; 96376; 99285-25; A9270; J0696; J1170; J1644; J1885; J7030; J7120; Q9967

== ENCOUNTER 2022-10-11 13:32 | Emergency (ER) | payer OTHER ==
[~2022-10-11] VITALS: Ht 167.6 cm; Wt 148.8 kg
[~2022-10-11 13:32] MED LIST changes: +AMITRIPTYLINE100 M6 PO; +ATORVASTATIN CA20 MG PO; +FAMO20 PO; +METF500 PO; +METR500 PO; +OXYC5 PO; +TAMSULOSIN HCL0.4 M1 PO; +VISBIOME 112.51 EACH PO
[2022-10-11 14:45] LABS: BASOPHILS ABSOLUTE AUTO 0.08 K/mm3 (0.00-0.23); BASOPHILS PERCENT AUTO 1 % (0-2); EOSINOPHILS ABSOLUTE AUTO 1.63 K/mm3 (0.00-0.68); EOSINOPHILS PERCENT AUTO 11 % (0-6); Hematocrit 36.9 % (33.0-51.0); Hemoglobin 11.9 g/dL (11.5-16.0); IMMATURE GRAN ABSOLUTE AUTO 0.12 K/mm3 (0.00-0.10); IMMATURE GRAN PERCENT AUTO 1 % (0-1); LYMPHOCYTES ABSOLUTE AUTO 2.31 K/mm3 (0.84-5.20); LYMPHOCYTES PERCENT AUTO 16 % (21-46); MONOCYTES ABSOLUTE AUTO 0.48 K/mm3 (0.16-1.47); MONOCYTES PERCENT AUTO 3 % (4-13); Mean Corpuscular HGB 28.7 pg (26.0-34.0); Mean Corpuscular HGB Conc 32.2 g/dL (31.5-36.5); Mean Corpuscular Volume 89 fL (80-100); Mean Platelet Volume 9.2 fL (9.1-12.4); NEUTROPHILS PERCENT AUTO 69 % (41-73); Platelet Count 429 K/mm3 (150-400); RDW Coefficient Variation 14.5 % (11.7-14.2); RDW Standard Deviation 46.3 fL (35.1-46.3); Red Blood Cell Count 4.15 M/mm3 (3.80-5.20); White Blood Cell Count 14.82 K/mm3 (4.00-11.30)
[2022-10-11 15:02] LABS: Albumin, Blood 2.9 g/dL (3.4-5.0); Albumin/Globulin Ratio 0.8 (0.8-1.8); Bilirubin, Total 0.5 mg/dL (0.1-1.0); Bun/Creatinine Ratio 10.5 (12.0-20.0); Calcium, Blood 9.1 mg/dL (8.5-10.1); Creatinine, Blood 1.14 mg/dL (0.40-1.00); Globulin, Blood 3.8 g/dL (2.2-4.0); Potassium, Blood 4.2 mmol/L (3.5-5.5); Total Protein, Blood 6.7 g/dL (6.4-8.2)
[2022-10-11 17:19] VITALS: BP 139/92
[2022-10-11] MEDS ORDERED: OXAYDO5 M1 PO (17:22)
[2022-10-11] MEDS ORDERED: PROBIOTIC1 EA13 PO (17:22)
== END 2022-10-11 17:29 | disposition home or self-care (01) ==
LOC: ER 13:32
PROVIDERS: Emergency Medicine
DX: K52.9 Noninfective gastroenteritis and colitis, unspecified (principal); Z88.8 Allergy status to other drugs, medicaments and biological substances; Z91.012 Allergy to eggs; Z91.018 Allergy to other foods; Z79.899 Other long term (current) drug therapy; Z79.84 Long term (current) use of oral hypoglycemic drugs; J45.909 Unspecified asthma, uncomplicated; Z87.891 Personal history of nicotine dependence
CPT/HCPCS: 80053; 83690; 85025; 96374; 96375; 99284-25; A9270; J1885; J2060

== ENCOUNTER 2022-10-19 02:19 | Emergency (ER) | payer OTHER ==
[~2022-10-19 02:19] MED LIST changes: +OXAYDO5 M1 PO; +PROBIOTIC1 EA13 PO
[2022-10-19] MEDS ORDERED: OXAYDO5 M1 PO (05:36)
[2022-10-19] MEDS ORDERED: PROBIOTIC1 EA14 PO (05:36)
[2022-10-19 07:23] LABS: Albumin, Blood 3.2 g/dL (3.4-5.0); Albumin/Globulin Ratio 0.7 (0.8-1.8); Bilirubin, Total 0.4 mg/dL (0.1-1.0); Calcium, Blood 9.2 mg/dL (8.5-10.1); Creatinine, Blood 1.11 mg/dL (0.40-1.00); Globulin, Blood 4.4 g/dL (2.2-4.0); Potassium, Blood 4.1 mmol/L (3.5-5.5); Total Protein, Blood 7.6 g/dL (6.4-8.2)
[2022-10-19 07:25] LABS: BASOPHILS ABSOLUTE AUTO 0.08 K/mm3 (0.00-0.23); BASOPHILS PERCENT AUTO 1 % (0-2); EOSINOPHILS ABSOLUTE AUTO 1.15 K/mm3 (0.00-0.68); EOSINOPHILS PERCENT AUTO 7 % (0-6); Hemoglobin 12.9 g/dL (11.5-16.0); IMMATURE GRAN ABSOLUTE AUTO 0.05 K/mm3 (0.00-0.10); IMMATURE GRAN PERCENT AUTO 0 % (0-1); LYMPHOCYTES ABSOLUTE AUTO 3.24 K/mm3 (0.84-5.20); LYMPHOCYTES PERCENT AUTO 20 % (21-46); MONOCYTES ABSOLUTE AUTO 0.62 K/mm3 (0.16-1.47); MONOCYTES PERCENT AUTO 4 % (4-13); Mean Corpuscular HGB Conc 32.3 g/dL (31.5-36.5); Mean Corpuscular Volume 90 fL (80-100); Mean Platelet Volume 8.9 fL (9.1-12.4); NEUTROPHILS ABSOLUTE AUTO 10.77 K/mm3 (1.96-9.15); NEUTROPHILS PERCENT AUTO 68 % (41-73); Platelet Count 457 K/mm3 (150-400); RDW Coefficient Variation 14.6 % (11.7-14.2); RDW Standard Deviation 48.2 fL (35.1-46.3); Red Blood Cell Count 4.45 M/mm3 (3.80-5.20); White Blood Cell Count 15.91 K/mm3 (4.00-11.30)
[2022-10-19 07:27] LABS: Appearance, Urine Clear (Clear); Bilirubin, Urine Neg (Neg); Blood, Urine Neg (Neg); Color, Urine Yellow (P-Yellow); Glucose Qualitative, Urine Neg (Neg); Ketones, Urine Neg (Neg); Leukocyte Esterase, Urine Neg (Neg); Nitrite, Urine Neg (Neg); Protein, Urine 1+ (Neg); Urobilinogen, Urine NORM (Normal)
== END 2022-10-19 05:45 | disposition home or self-care (01) ==
LOC: ER 02:19
PROVIDERS: Emergency Medicine
DX: T67.5XXA Heat exhaustion, unspecified, initial encounter (principal); X30.XXXA Exposure to excessive natural heat, initial encounter; Z91.012 Allergy to eggs; Z91.018 Allergy to other foods; Z88.8 Allergy status to other drugs, medicaments and biological substances; Z79.899 Other long term (current) drug therapy; Z87.891 Personal history of nicotine dependence
CPT/HCPCS: 80053; 85025; 99284

== ENCOUNTER 2023-02-10 12:39 | Emergency (ER) | payer OTHER ==
[~2023-02-10] VITALS: Ht 167.6 cm; Wt 158.8 kg
[~2023-02-10 12:39] MED LIST changes: +AMOX-CLAV 875-1 EAC4 PO; +MECL25 PO; +PROBIOTIC1 EA14 PO
[2023-02-10 13:45] VITALS: BP 139/98
== END 2023-02-10 15:44 | disposition home or self-care (01) ==
LOC: ER 12:39
DX: H92.03 Otalgia, bilateral (principal); E78.5 Hyperlipidemia, unspecified; J45.909 Unspecified asthma, uncomplicated; M79.7 Fibromyalgia; Z87.891 Personal history of nicotine dependence; Z79.51 Long term (current) use of inhaled steroids; Z79.899 Other long term (current) drug therapy; Z88.8 Allergy status to other drugs, medicaments and biological substances; Z91.012 Allergy to eggs; Z91.018 Allergy to other foods
CPT/HCPCS: 96372; 99282-25; J1885

== ENCOUNTER 2023-03-05 14:08 | Emergency (ER) | payer OTHER ==
[~2023-03-05] VITALS: Ht 167.6 cm; Wt 127.0 kg
[2023-03-05 15:20] LABS: BASOPHILS ABSOLUTE AUTO 0.06 K/mm3 (0.00-0.23); BASOPHILS PERCENT AUTO 1 % (0-2); EOSINOPHILS ABSOLUTE AUTO 1.22 K/mm3 (0.00-0.68); EOSINOPHILS PERCENT AUTO 12 % (0-6); Hematocrit 45.6 % (33.0-51.0); Hemoglobin 14.2 g/dL (11.5-16.0); IMMATURE GRAN ABSOLUTE AUTO 0.02 K/mm3 (0.00-0.10); IMMATURE GRAN PERCENT AUTO 0 % (0-1); LYMPHOCYTES ABSOLUTE AUTO 2.08 K/mm3 (0.84-5.20); LYMPHOCYTES PERCENT AUTO 21 % (21-46); MONOCYTES PERCENT AUTO 4 % (4-13); Mean Corpuscular HGB Conc 31.1 g/dL (31.5-36.5); Mean Corpuscular Volume 90 fL (80-100); Mean Platelet Volume 9.2 fL (9.1-12.4); NEUTROPHILS PERCENT AUTO 63 % (41-73); Platelet Count 437 K/mm3 (150-400); RDW Coefficient Variation 13.6 % (11.7-14.2); RDW Standard Deviation 44.7 fL (35.1-46.3); Red Blood Cell Count 5.07 M/mm3 (3.80-5.20); White Blood Cell Count 10.08 K/mm3 (4.00-11.30)
[2023-03-05 15:37] LABS: Albumin, Blood 3.2 g/dL (3.4-5.0); Albumin/Globulin Ratio 0.7 (0.8-1.8); Bilirubin, Total 0.6 mg/dL (0.1-1.0); Bun/Creatinine Ratio 11.9 (12.0-20.0); Creatinine, Blood 0.93 mg/dL (0.40-1.00); Globulin, Blood 4.7 g/dL (2.2-4.0); Potassium, Blood 4.4 mmol/L (3.5-5.5); Total Protein, Blood 7.9 g/dL (6.4-8.2)
[2023-03-05 16:26] LABS: Source, Urine Clean Catch
[2023-03-05 16:38] LABS: Bilirubin, Urine Neg (Neg); Blood, Urine Neg (Neg); Glucose Qualitative, Urine Neg (Neg); Ketones, Urine Neg (Neg); Leukocyte Esterase, Urine Neg (Neg); Nitrite, Urine Neg (Neg); Protein, Urine 2+ (Neg); Specific Gravity, Urine 1.025 (1.003-1.022); Urobilinogen, Urine NORM (Normal)
[2023-03-05 16:57] LABS: Appearance, Urine Hazy (Clear); Color, Urine Yellow (P-Yellow)
[2023-03-05 16:58] LABS: Bacteria Many /hpf; Mucus Heavy (0-Heavy); Red Blood Cells, Urine 0-2 /hpf (0-2); Squamous Epithelial Cells Many /hpf (Few)
[2023-03-05 17:06] VITALS: BP 140/91
[2023-03-05] MEDS ORDERED: Amoxicillin875 MG PO (17:26)
== END 2023-03-05 18:31 | disposition home or self-care (01) ==
LOC: ER 14:08
PROVIDERS: Physician Assistant
DX: T16.1XXA Foreign body in right ear, initial encounter (principal); W44.8XXA Other foreign body entering into or through a natural orifice, initial encounter; R10.9 Unspecified abdominal pain; J45.909 Unspecified asthma, uncomplicated; Q60.0 Renal agenesis, unilateral; Z91.012 Allergy to eggs; Z88.8 Allergy status to other drugs, medicaments and biological substances; Z91.018 Allergy to other foods; Z79.899 Other long term (current) drug therapy; Z79.84 Long term (current) use of oral hypoglycemic drugs
CPT/HCPCS: 69200; 76770; 80053; 81001; 85025; 87086; 99284-25; A9270

== ENCOUNTER → 2023-08-28 | Outpatient (CLI) | payer OTHER ==
[~2023-08-28] MED LIST changes: +ALLO100 PO; +EXCEDRIN; +EXCEDRIN MIGRAINE PO; +EYE DROPS; +HUMALOG KW100 UNIT/1 SC; +LIDO700A20 TOP; +PRENATAL TABLE1 EAC2 PO
[2023-09-06 10:19] LABS: HPV HIGH RISK BY TMA Not Detected; HPV SOURCE Vaginal
== END | disposition home or self-care (01) ==
LOC: LAB 16:09 → LAB SHORT 16:09
PROVIDERS: Advanced Practice Midwife
DX: Z01.419 Encounter for gynecological examination (general) (routine) without abnormal findings (principal)
CPT/HCPCS: 87624; G0123

== ENCOUNTER → 2023-10-04 | Outpatient (CLI) | payer OTHER ==
[2023-10-04 11:31] LABS: BASOPHILS ABSOLUTE AUTO 0.06 K/mm3 (0.00-0.23); BASOPHILS PERCENT AUTO 1 % (0-2); EOSINOPHILS ABSOLUTE AUTO 0.59 K/mm3 (0.00-0.68); EOSINOPHILS PERCENT AUTO 6 % (0-6); Hematocrit 42.7 % (33.0-51.0); Hemoglobin 13.6 g/dL (11.5-16.0); IMMATURE GRAN ABSOLUTE AUTO 0.03 K/mm3 (0.00-0.10); IMMATURE GRAN PERCENT AUTO 0 % (0-1); LYMPHOCYTES ABSOLUTE AUTO 2.42 K/mm3 (0.84-5.20); LYMPHOCYTES PERCENT AUTO 25 % (21-46); MONOCYTES ABSOLUTE AUTO 0.43 K/mm3 (0.16-1.47); MONOCYTES PERCENT AUTO 5 % (4-13); Mean Corpuscular HGB 28.1 pg (26.0-34.0); Mean Corpuscular HGB Conc 31.9 g/dL (31.5-36.5); Mean Corpuscular Volume 88 fL (80-100); Mean Platelet Volume 9.1 fL (9.1-12.4); NEUTROPHILS PERCENT AUTO 63 % (41-73); Platelet Count 378 K/mm3 (150-400); RDW Coefficient Variation 13.7 % (11.7-14.2); RDW Standard Deviation 44.1 fL (35.1-46.3); Red Blood Cell Count 4.84 M/mm3 (3.80-5.20); White Blood Cell Count 9.53 K/mm3 (4.00-11.30)
[2023-10-04 11:40] LABS: Bun/Creatinine Ratio 14.6 (12.0-20.0); Calcium, Blood 9.7 mg/dL (8.5-10.1); Creatinine, Blood 0.96 mg/dL (0.40-1.00); Potassium, Blood 4.2 mmol/L (3.5-5.5); Uric Acid, Blood 7.2 mg/dL (2.6-6.0)
== END | disposition home or self-care (01) ==
LOC: LAB 11:26 → LAB SHORT 11:26
PROVIDERS: Chiropractor
DX: R07.89 Other chest pain (principal); M79.671 Pain in right foot; M79.672 Pain in left foot
CPT/HCPCS: 80048; 83880; 84484; 84550; 85025; 85379

== ENCOUNTER 2023-11-09 11:34 | Emergency (ER) | payer OTHER ==
[~2023-11-09] VITALS: Ht 167.6 cm; Wt 158.8 kg
[2023-11-09 11:37] VITALS: BP 127/86
[2023-11-09] MEDS ORDERED: HYDR1TAB94 PO (12:35)
[2023-11-09] MEDS ORDERED: HYDROcodone 5-APAP 325 TAB PO ONE (12:55)
== END 2023-11-09 13:03 | disposition home or self-care (01) ==
LOC: ER 11:34
DX: S83.91XA Sprain of unspecified site of right knee, initial encounter (principal); J45.909 Unspecified asthma, uncomplicated; W01.0XXA Fall on same level from slipping, tripping and stumbling without subsequent striking against object, initial encounter; Z79.4 Long term (current) use of insulin; Z79.899 Other long term (current) drug therapy; Z88.8 Allergy status to other drugs, medicaments and biological substances; Z91.018 Allergy to other foods; Z91.012 Allergy to eggs
CPT/HCPCS: 29505; 73562-RT; 99283-25; A9270

== ENCOUNTER 2024-04-21 02:16 | Emergency (ER) | payer OTHER ==
[~2024-04-21] VITALS: Ht 167.6 cm; Wt 147.0 kg
[~2024-04-21 02:16] MED LIST changes: +HYDR1TAB94 PO
[2024-04-21 02:26] VITALS: BP 149/100
== END 2024-04-21 03:20 | disposition home or self-care (01) ==
LOC: ER 02:16
DX: S92.512A Displaced fracture of proximal phalanx of left lesser toe(s), initial encounter for closed fracture (principal); J45.909 Unspecified asthma, uncomplicated; W22.8XXA Striking against or struck by other objects, initial encounter; Z79.4 Long term (current) use of insulin; Z79.899 Other long term (current) drug therapy; Z91.012 Allergy to eggs; Z91.018 Allergy to other foods
CPT/HCPCS: 73610; 73620; 99283-25

== ENCOUNTER 2024-11-22 15:05 | Emergency (ER) | payer OTHER ==
[~2024-11-22] VITALS: Ht 167.6 cm; Wt 136.1 kg
[2024-11-22] MEDS ORDERED: Methyl Salicylate/Menth/Camph 57 GM TUBE TOP ONE (15:35)
[2024-11-22] MEDS ORDERED: Ketorolac Tromethamine 15mg Vial IM ONE (15:35)
[2024-11-22] MEDS ORDERED: Voltaren100 GM TOP (17:58)
[2024-11-22] MEDS ORDERED: Robaxin750 MG PO (17:58)
[2024-11-22 18:12] VITALS: BP 124/88
== END 2024-11-22 18:18 | disposition home or self-care (01) ==
LOC: ER 15:05
DX: S09.90XA Unspecified injury of head, initial encounter (principal); S16.1XXA Strain of muscle, fascia and tendon at neck level, initial encounter; Z91.018 Allergy to other foods; Z88.8 Allergy status to other drugs, medicaments and biological substances; Z91.012 Allergy to eggs; Z79.4 Long term (current) use of insulin; Z79.899 Other long term (current) drug therapy; X58.XXXA Exposure to other specified factors, initial encounter
CPT/HCPCS: 70450; 72125; 96372; 99283-25; A9270; J1885

== ENCOUNTER 2024-12-19 22:25 | Emergency (ER) | payer OTHER ==
[~2024-12-19] VITALS: Ht 167.6 cm; Wt 142.4 kg
[~2024-12-19 22:25] MED LIST changes: +Robaxin750 MG PO
[2024-12-19] MEDS ORDERED: Ketorolac Tromethamine 15mg Vial IV ONE (23:50)
[2024-12-19] MEDS ORDERED: DiphenhydrAMINE HCl 50 MG/ML 1ML Vial IV ONE (23:50)
[2024-12-19] MEDS ORDERED: NS 1,000 ML IV SCH (23:55)
[2024-12-20 00:24] LABS: BASOPHILS ABSOLUTE AUTO 0.06 K/mm3 (0.00-0.23); BASOPHILS PERCENT AUTO 0 % (0-2); EOSINOPHILS ABSOLUTE AUTO 0.52 K/mm3 (0.00-0.68); EOSINOPHILS PERCENT AUTO 3 % (0-6); Hematocrit 43.0 % (33.0-51.0); Hemoglobin 14.1 g/dL (11.5-16.0); IMMATURE GRAN ABSOLUTE AUTO 0.09 K/mm3 (0.00-0.10); IMMATURE GRAN PERCENT AUTO 1 % (0-1); LYMPHOCYTES ABSOLUTE AUTO 2.78 K/mm3 (0.84-5.20); LYMPHOCYTES PERCENT AUTO 18 % (21-46); MONOCYTES ABSOLUTE AUTO 0.63 K/mm3 (0.16-1.47); MONOCYTES PERCENT AUTO 4 % (4-13); Mean Corpuscular HGB Conc 32.8 g/dL (31.5-36.5); Mean Corpuscular Volume 90 fL (80-100); NEUTROPHILS ABSOLUTE AUTO 11.11 K/mm3 (1.96-9.15); NEUTROPHILS PERCENT AUTO 73 % (41-73); NRBC ABSOLUTE 0.00 K/mm3 (0.00-0.02); NRBC Auto 0.0 /100 WBC (0.0-0.2); Platelet Count 436 K/mm3 (150-400); RDW Coefficient Variation 13.4 % (11.7-14.2); RDW Standard Deviation 44.6 fL (35.1-46.3)
[2024-12-20 00:43] LABS: Alanine Aminotransfer (ALT/SGP 58.0 U/L (12-78); Albumin, Blood 3.3 g/dL (3.4-5.0); Albumin/Globulin Ratio 0.8 (0.8-1.8); Anion Gap 11.0 mmol/L (3-11); Aspartate Aminotrans (AST/SGOT 25.0 U/L (12-37); Bilirubin, Total 0.3 mg/dL (0.1-1.0); Blood Urea Nitrogen 22.0 mg/dL (8-24); CO2, Blood 23.0 mmol/L (21-32); Calcium, Blood 9.0 mg/dL (8.5-10.1); Chloride, Blood 106.0 mmol/L (98-108); Creatinine, Blood 1.08 mg/dL (0.40-1.00); Globulin, Blood 3.9 g/dL (2.2-4.0); Glucose, Blood 203.0 mg/dL (70-99); Potassium, Blood 3.9 mmol/L (3.5-5.5); Sodium, Blood 136.0 mmol/L (136-145); Total Protein, Blood 7.2 g/dL (6.4-8.2)
[2024-12-20 01:23] LABS: Source, Urine Clean Catch
[2024-12-20 01:24] VITALS: BP 138/96
[2024-12-20 01:52] LABS: Bilirubin, Urine Neg (Neg); Glucose Qualitative, Urine Neg (Neg); Ketones, Urine Neg (Neg); Leukocyte Esterase, Urine 2+ (Neg); Protein, Urine 2+ (Neg); Specific Gravity, Urine 1.020 (1.003-1.022); Urobilinogen, Urine 1+ (Normal)
[2024-12-20 02:19] LABS: Color, Urine Yellow (P-Yellow)
[2024-12-20 02:21] LABS: Red Blood Cells, Urine 0-2 /hpf (0-2)
[2024-12-20] MEDS ORDERED: CEPH500 PO (02:37)
== END 2024-12-20 02:51 | disposition home or self-care (01) ==
LOC: ER 22:25
PROVIDERS: Student in an Organized Health Care Education/Training Program
DX: S06.0X0A Concussion without loss of consciousness, initial encounter (principal); N30.00 Acute cystitis without hematuria; W19.XXXA Unspecified fall, initial encounter; J45.909 Unspecified asthma, uncomplicated; Z87.891 Personal history of nicotine dependence; Z79.899 Other long term (current) drug therapy; Z79.4 Long term (current) use of insulin; Z91.0120 Allergy to eggs, unspecified; Z91.018 Allergy to other foods; Z88.8 Allergy status to other drugs, medicaments and biological substances
CPT/HCPCS: 80053; 81001; 85025; 87086; 96361; 96374; 96375; 99284-25; A9270; J1200; J1885; J7030

== ENCOUNTER 2025-02-13 23:13 | Emergency (ER) | payer OTHER ==
[~2025-02-13] VITALS: Ht 167.6 cm; Wt 142.4 kg
[2025-02-13 23:42] VITALS: BP 128/94
== END 2025-02-14 01:48 | disposition left against medical advice (07) ==
LOC: ER 23:13
DX: R10.A2 Flank pain, left side (principal); R30.0 Dysuria; H92.03 Otalgia, bilateral; Z53.29 Procedure and treatment not carried out because of patient's decision for other reasons; Z79.899 Other long term (current) drug therapy; Z79.4 Long term (current) use of insulin; Z91.0120 Allergy to eggs, unspecified; Z88.8 Allergy status to other drugs, medicaments and biological substances; Z91.018 Allergy to other foods
CPT/HCPCS: 99283

== ENCOUNTER 2025-02-20 19:04 | Observation (INO) | payer OTHER ==
[~2025-02-20] VITALS: Ht 167.6 cm; Wt 140.8 kg
[2025-02-20 19:53] LABS: Alanine Aminotransfer (ALT/SGP 22.0 U/L (12-78); Albumin, Blood 3.5 g/dL (3.4-5.0); Albumin/Globulin Ratio 0.9 (0.8-1.8); Anion Gap 11.0 mmol/L (3-11); Aspartate Aminotrans (AST/SGOT 11.0 U/L (12-37); Bilirubin, Total 0.5 mg/dL (0.1-1.0); Blood Urea Nitrogen 16.0 mg/dL (8-24); CO2, Blood 22.0 mmol/L (21-32); Calcium, Blood 8.9 mg/dL (8.5-10.1); Chloride, Blood 105.0 mmol/L (98-108); Creatinine, Blood 0.9 mg/dL (0.40-1.00); Globulin, Blood 3.8 g/dL (2.2-4.0); Glucose, Blood 189.0 mg/dL (70-99); Potassium, Blood 4.0 mmol/L (3.5-5.5); Sodium, Blood 134.0 mmol/L (136-145); Total Protein, Blood 7.3 g/dL (6.4-8.2)
[2025-02-20 19:54] LABS: BASOPHILS ABSOLUTE AUTO 0.07 K/mm3 (0.00-0.23); BASOPHILS PERCENT AUTO 1 % (0-2); EOSINOPHILS ABSOLUTE AUTO 0.48 K/mm3 (0.00-0.68); EOSINOPHILS PERCENT AUTO 4 % (0-6); Hematocrit 43.0 % (33.0-51.0); Hemoglobin 14.3 g/dL (11.5-16.0); IMMATURE GRAN ABSOLUTE AUTO 0.07 K/mm3 (0.00-0.10); IMMATURE GRAN PERCENT AUTO 1 % (0-1); LYMPHOCYTES ABSOLUTE AUTO 2.92 K/mm3 (0.84-5.20); LYMPHOCYTES PERCENT AUTO 22 % (21-46); MONOCYTES ABSOLUTE AUTO 0.50 K/mm3 (0.16-1.47); MONOCYTES PERCENT AUTO 4 % (4-13); Mean Corpuscular HGB Conc 33.3 g/dL (31.5-36.5); Mean Corpuscular Volume 89 fL (80-100); NEUTROPHILS ABSOLUTE AUTO 9.35 K/mm3 (1.96-9.15); NEUTROPHILS PERCENT AUTO 70 % (41-73); NRBC ABSOLUTE 0.00 K/mm3 (0.00-0.02); NRBC Auto 0.0 /100 WBC (0.0-0.2); Platelet Count 388 K/mm3 (150-400); RDW Coefficient Variation 12.9 % (11.7-14.2); RDW Standard Deviation 42.1 fL (35.1-46.3)
[2025-02-20 20:44] LABS: Source, Urine Clean Catch
[2025-02-20 20:52] LABS: Bilirubin, Urine Neg (Neg); Color, Urine Yellow (P-Yellow); Glucose Qualitative, Urine Neg (Neg); Ketones, Urine Neg (Neg); Leukocyte Esterase, Urine 2+ (Neg); Protein, Urine 1+ (Neg); Specific Gravity, Urine 1.010 (1.003-1.022); Urobilinogen, Urine NORM (Normal)
[2025-02-20 20:59] LABS: Red Blood Cells, Urine 0-2 /hpf (0-2)
[2025-02-20] MEDS ORDERED: CefTRIAXone Sodium 1,000 MG in NS 50 ML IV ONE (23:05)
[2025-02-20] MEDS ORDERED: Ketorolac Tromethamine 30mg Vial IV ONE (23:30)
[2025-02-20] MEDS ORDERED: NS 1,000 ML IV SCH (23:55)
[2025-02-21] MEDS ORDERED: Albuterol 2.5 MG/3 ML VIAL INH PRN (01:45)
[2025-02-21] MEDS ORDERED: Peg 400/Hypromellose/Glycerin 15 DROP/ML BTL BOTHEYES PRN (01:50)
[2025-02-21] MEDS ORDERED: FLU VACC TS2025-26(6MOS UP)/PF 45 MCG/0.5 ML SYRINGE IM SCH (01:50)
[2025-02-21] MEDS ORDERED: CefTRIAXone Sodium 1,000 MG in NS 100 ML IV ONE ×2 (01:55→03:50)
[2025-02-21] MEDS ORDERED: NS 1,000 ML IV SCH ×2 (02:00→03:55)
[2025-02-21] MEDS ORDERED: Ketorolac Tromethamine 15mg Vial IV PRN (02:00)
[2025-02-21] MEDS ORDERED: Dextran/Hypromellose/Glycerin 15 DROP/ML BTL BOTHEYES PRN (02:00)
[2025-02-21 02:32] LABS: BASOPHILS ABSOLUTE AUTO 0.06 K/mm3 (0.00-0.23); BASOPHILS PERCENT AUTO 0 % (0-2); EOSINOPHILS ABSOLUTE AUTO 0.43 K/mm3 (0.00-0.68); EOSINOPHILS PERCENT AUTO 3 % (0-6); Hematocrit 39.4 % (33.0-51.0); Hemoglobin 13.0 g/dL (11.5-16.0); IMMATURE GRAN ABSOLUTE AUTO 0.08 K/mm3 (0.00-0.10); IMMATURE GRAN PERCENT AUTO 1 % (0-1); LYMPHOCYTES ABSOLUTE AUTO 2.86 K/mm3 (0.84-5.20); LYMPHOCYTES PERCENT AUTO 21 % (21-46); MONOCYTES ABSOLUTE AUTO 0.58 K/mm3 (0.16-1.47); MONOCYTES PERCENT AUTO 4 % (4-13); Mean Corpuscular HGB Conc 33.0 g/dL (31.5-36.5); Mean Corpuscular Volume 91 fL (80-100); NEUTROPHILS ABSOLUTE AUTO 9.81 K/mm3 (1.96-9.15); NEUTROPHILS PERCENT AUTO 71 % (41-73); NRBC ABSOLUTE 0.00 K/mm3 (0.00-0.02); NRBC Auto 0.0 /100 WBC (0.0-0.2); Platelet Count 351 K/mm3 (150-400); RDW Coefficient Variation 13.0 % (11.7-14.2); RDW Standard Deviation 42.8 fL (35.1-46.3)
[2025-02-21] MEDS ORDERED: LOSA50 PO (02:36)
[2025-02-21 02:49] LABS: Alanine Aminotransfer (ALT/SGP 20.0 U/L (12-78); Albumin, Blood 3.1 g/dL (3.4-5.0); Albumin/Globulin Ratio 0.8 (0.8-1.8); Anion Gap 11.0 mmol/L (3-11); Aspartate Aminotrans (AST/SGOT 15.0 U/L (12-37); Bilirubin, Total 0.4 mg/dL (0.1-1.0); Blood Urea Nitrogen 14.0 mg/dL (8-24); CO2, Blood 23.0 mmol/L (21-32); Calcium, Blood 8.9 mg/dL (8.5-10.1); Chloride, Blood 106.0 mmol/L (98-108); Creatinine, Blood 0.88 mg/dL (0.40-1.00); Globulin, Blood 3.7 g/dL (2.2-4.0); Glucose, Blood 112.0 mg/dL (70-99); Magnesium, Blood 2.1 mg/dL (1.6-2.4); Potassium, Blood 3.8 mmol/L (3.5-5.5); Sodium, Blood 136.0 mmol/L (136-145); Total Protein, Blood 6.8 g/dL (6.4-8.2)
--- NOTE | 2025-02-21 03:00 | NUR ---
ARRIVAL TO SURGICAL UNIT ROOM 211 AT 0220. PT ARRIVED TO SURGICAL UNIT VIA GURNEY, PT ABLE TO STAND AND TRANSFER TO HOSPITAL BED. PT REPORTED MILD LIGHTHEADEDNESS DURING TRANSFER. PT ORIENTED TO ROOM, CALL LIGHT, UNIT POLICIES AND PROCEDURES. PT DENIES IGNITION SOURCES ON PERSON. PT DECLINED CHANGING INTO A GOWN AND DECLINED SCDS. EDUCATION PROVIDED ON IMPORTANCE OF SCDS TO PREVENT CLOTS.
--- NOTE | 2025-02-21 04:00 | NUR ---
CALL TO PHARMACIST. CLARIFICATION CALL PLACED TO PHARMACY. PT HAD AN UNGIVEN SCHEDULED MEDICATION OF IV ROCEPHIN 1,OOOMG PAST DUE FOR 0155 AND DOSE OF ROCEPHIN 1,000MG WAS GIVEN IN ER AT 2334. PER ARLENE GARZA DOSAGE ORDERED WAS 2,000 MG SO SECOND ROCEPHIN DOSE OF 1,000MG IS STILL NEEDED. WILL GIVE DOSE PER EMAR.
[2025-02-21] MEDS ORDERED: FentaNYL Citrate 50 MCG/ML 2 ML Injection IV PRN ×2 (04:55→06:40)
--- NOTE | 2025-02-21 05:03 | NUR ---
CALL TO HOSPITALIST. PT C/O UNRESOLVED PAIN AFTER TYLENOL DOSEAGE. PT ALSO C/O OF NERVE PAIN IN BILATERAL LEGS SHE REPORTS SHE HAS NOT TAKEN HOME MEDICATION GABAPENTIN SINCE ARRIVING AT HOSPITAL. NEW ORDERS RECEIVED FOR IV FENT AND TO START HOME MEDICATION GABAPENTIN AND OK TO START AM DOSE NOW.
--- NOTE | 2025-02-21 06:39 | NUR ---
SHIFT SUMMARY NOC. PT ADMIT FOR FLANK PAIN c HX OF RIGHT NEPHRECTOMY. PT TOLERATING DIET ORDERED AND VOIDING URINE. PT MEDICATED FOR PAIN WITH SOME REPORTED RELIEF OF SX WITH IV FENT AND HOME DOSE OF GABAPENTIN. PT MAKES NEEDS KNOWN, CALL LIGHT IN REACH.
[2025-02-21 07:41] VITALS: BP 130/81
--- NOTE | 2025-02-21 08:27 | NUR ---
PT REMOVED TELE 0754, PER GRISEL SOTELO. THIS RN ROUNDED ON PT AT 0800 PT IS SITTING UP IN BED EATING BREAKFAST AND PT STATES SHE DOES NOT WANT IT AND DOES NOT HAVE HEART ISSUES. DR. TYSON MADE AWARE AT 0830.
[2025-02-21] MEDS ORDERED: Enoxaparin 40 MG/0.4 ML SYR SC SCH (09:00)
[2025-02-21] MEDS ORDERED: Lactobacil 2-S.Thermo-Bifido 1 1 Cap PO SCH ×2 (09:00)
--- NOTE | 2025-02-21 14:34 | NUR ---
DISCHARGE: DR. TYSON ROUNDED ON PT AND IS OK WITH DC. IV'S DC'D WNL, TIPS INTACT. PT GIVEN DC INSTRUCTIONS AND VERBALIZED UNDERSTANDING. LEFT UNIT VIA WHEELCHAIR AT ABOUT 12 WITH GRISEL ALLEN
[2025-02-21] MEDS ORDERED: CefTRIAXone Sodium 2,000 MG in NS 100 ML IV SCH (21:00)
== END 2025-02-21 12:39 | disposition home or self-care (01) ==
LOC: ER 19:04 → ERHOLD 19:05 → SURS 19:05
PROVIDERS: Physician Assistant; ADMIT Internal Medicine
DX: R10.A2 Flank pain, left side (principal); R06.00 Dyspnea, unspecified; R53.83 Other fatigue; H53.142 Visual discomfort, left eye; R73.03 Prediabetes; M79.7 Fibromyalgia; Z79.4 Long term (current) use of insulin; Z79.899 Other long term (current) drug therapy; Z88.8 Allergy status to other drugs, medicaments and biological substances; Z91.0120 Allergy to eggs, unspecified; Z91.018 Allergy to other foods; Z90.49 Acquired absence of other specified parts of digestive tract; Z90.710 Acquired absence of both cervix and uterus; Z90.5 Acquired absence of kidney; Z85.528 Personal history of other malignant neoplasm of kidney
CPT/HCPCS: 36415; 71046; 74177; 80053; 81001; 83605; 83735; 84484; 85025; 87040; 87086; 93005; 93010; 94762; 96361; 96365-59; 96366; 96372; 96375; 96376; 99285-25; A9270; G0378; J0696; J1650; J1885; J3010; J7030; Q9967